=== PATIENT | male | born 1950 | race Caucasian/White ===

== ENCOUNTER 2018-04-23 07:33 | Day surgery (SDC) | payer MEDICARE, MEDICAID ==
[~2018-04-23] VITALS: Ht 170.2 cm; Wt 70.8 kg
[2018-04-23] VITALS (8 sets, daily range): BP systolic 144–168; BP diastolic 76–84
--- NOTE | 2018-04-23 06:35 | Anethesia Preoperative Eval ---
Anesthesia Pre-op PMH/ROS General Date of Evaluation: Apr 23, 2018 Time of Evaluation: 06:30 Anesthesiologist: gloria ASA Score: ASA 3 Mallampati Score Class I : Soft palate, uvula, fauces, pillars visible Class II: Soft palate, uvula, fauces visible Class III: Soft palate, base of uvula visible Class IV: Only hard plate visible Mallampati Classification: Class II Surgeon: emily Diagnosis: gerd, colon screening Surgical Procedure: egd/colonoscopy Anesthesia History: none Social History: alcohol use Family History: no anesthesia problems Allergies: Coded Allergies: No Known Allergies (Unverified , 04/18/18) Medications: see eMAR Past Medical History Cardiovascular: Reports: other - hld, Pulmonary: Denies: asthma, COPD, RAJ, other Gastrointestinal/Genitourinary: Reports: other - h. pylori, gerd, constipation , kidney stones Neurologic/Psychiatric: Denies: dementia, CVA, depression/anxiety, TIA, other Endocrine: Denies: DM, hypothyroidism, steroids, other HEENT: Denies: cataract (L), cataract (R), glaucoma, [place] (L[place] (R), other Hematology/Immune: Reports: anemia Musculoskeletal/Integumentary: Reports: OA Anesthesia Pre-op Phys. Exam Physician Exam Constitutional: NAD Neurologic: CN 2-12 intact - disconjugate gaze, exophthalmos, other Cardiovascular: RRR Respiratory: CTA Gastrointestinal: S/NT/ND Airway Exam Mallampati Score: Class II MO: full Neck: supple TMD: 2fb ROM: full Anesthesia Pre-op A/P Risk Assessment & Plan Assessment: asa3 Plan: mac Status Change Before Surgery: No Pre-Antibiotics Drug: Katlyn Shepherd MD Apr 23, 2018 06:35
[~2018-04-23 07:33] MED LIST: Atropine Inj 1mg/10ml Syr IV PRN; DiphenhydrAMINE 50mg/ml Inj IVP PRN; Midazolam 2mg/2ml Inj IVP PRN; fentaNYL 100 mcg/2 mL IV PRN
[2018-04-23] MEDS ORDERED: NKM (08:06)
--- NOTE | 2018-04-23 09:42 | Pre-Procedure Note/Attestation ---
Pre-Procedure Note/Attestation Complete Prior to Procedure Planned Procedure: not applicable Procedure Narrative: esophagogastroduodenoscopy and colonoscopy Indications for Procedure Pre-Operative Diagnosis: screening colon, GERD Attestation I attest that I discussed the nature of the procedure; its benefits; risks and complications; and alternatives (and the risks and benefits of such alternatives ), prior to the procedure, with the patient (or the patient's legal sales representative [employer]). I attest that, if there was a reasonable possibility of needing a blood transfusion, the patient (or the patient's legal sales representative [employer]) was given the [facility] standardized written summary, pursuant to the [place] Blood Safety Act ([place] Health and Safety Code # 1645, as amended). I attest that I re-evaluated the patient just prior to the surgery and that there has been no change in the patient's H&P, except as documented below: Gurwinder Riddle MD Apr 23, 2018 09:42
--- NOTE | 2018-04-23 09:43 | Short Stay Surgery H&P ---
History of Present Illness History of Present Illness Chief Complaint see recent consult note HPI Venkata Gonzalez is a 67 year old male who was admitted on for Gerd, Colon Screening Patient History Allergies: Coded Allergies: No Known Allergies (Unverified , 04/18/18) Medication History Scheduled No Known Medications* (NKM - No Known Medications*), 0 ., (Reported) Physical Exam Vital Signs Last Vital Signs Date Time Temp Pulse Resp B/P (MAP) Pulse Ox O2 Delivery O2 Flow Rate FiO2 04/23/18 08:10 97.1 66 18 168/84 98 Nasal Cannula 97.1 Plan Attestation Are the patient's medical conditions optimized for surgery? Gurwinder Riddle MD Apr 23, 2018 09:43
[2018-04-23] MEDS ORDERED: Propofol 200mg/20ml IV ONE (10:00)
[2018-04-23] MEDS ORDERED: Lidocaine 1% MPF 10mg/ml 5ml ONE (10:00)
--- NOTE | 2018-04-23 10:34 | Endoscopy Procedure Note ---
Endoscopy Procedure Note General Indication for Procedure: screening colon, GERD Procedures Performed: EGD, colonoscopy Operative Findings/Diagnosis: gastrtis, polyp x1 Specimen: yes Pt Tolerated Procedure Well: Yes Estimated Blood Loss: none Anesthesia Anesthesiologist: keren Anesthesia: MAC Inserted Devices Implant(s) used?: No Quality Quality of Bowel Preparation: Good Did scope reach the cecum?: Yes Was there any complications?: No GI Core Measures 50 yrs or older w/o bx or poly: No 10yrs. F/U not recommended: Yes If not recommended, why?: Above average risk 10 yrs. F/U needed: Yes 18 years or older w/prev. colo: No Gurwinder Riddle MD Apr 23, 2018 10:34
--- NOTE | 2018-04-23 11:00 | Procedure Note ---
DATE OF PROCEDURE: 04/23/2018 SURGEON: Gurwinder Riddle M.D. ANESTHESIOLOGIST: Dr. Valladares. PROCEDURE: Upper endoscopy with biopsy and colonoscopy with biopsy. ANESTHESIA: Per Dr. Valladares. INSTRUMENT: Olympus adult flexible upper endoscope and colonoscope. INDICATION: Chronic GERD, history of gastric ulcer, screening colonoscopy. The procedure, risks, benefits, and possible consequences, including hemorrhage, aspiration, perforation and infection, and alternative treatments, were explained to the patient/legal guardian by Dr. Gurwinder Riddle and the patient/legal guardian understood and accepted these risks. DESCRIPTION OF PROCEDURE: After informed consent was obtained and the patient was adequately sedated, Olympus upper endoscope was advanced from the mouth into the second portion of the duodenum and retroflexion was performed in the stomach. The patient has some deformity right in the opening of the duodenal bulb, possibly from prior gastric ulcerations. There was no obvious ulceration at this time. The patient has evidence of a small hiatal hernia. In the stomach, there was diffuse gastritis. Random biopsy from antrum and body was obtained to rule out H. pylori infection. In the esophagus, there were some changes suspicious for eosinophilic esophagitis. Biopsy from the esophagus was obtained. At this time, the upper endoscope was retrieved. The patient was turned over for colonoscopy. First, rectal exam was performed which was positive for internal hemorrhoids. Then, the scope was advanced from rectum into the cecum documented by the appendiceal orifice, ileocecal valve, and right upper quadrant palpation. Quality of prep was good. The patient had one diminutive polyp in the sigmoid colon removed with the cold biopsy forceps technique, otherwise normal colonoscopy examination. There was some scattered diverticulosis. No obvious diverticulitis. Retroflexion of rectum showed evidence of internal hemorrhoids. SUMMARY OF FINDINGS: 1. Questionable eosinophilic esophagitis, status post biopsy. 2. Small hiatal hernia. 3. Gastritis, status post biopsy. 4. One colonic polyp removed, see above for details. 5. Internal hemorrhoids. 6. Scattered diverticulosis. RECOMMENDATIONS: 1. Follow up biopsy results and treat accordingly. 2. We will recommend repeat colonoscopy in 5 years. Gurwinder Riddle M.D. DR: Jannet JOB#: [id number] CC:
--- NOTE | 2018-04-23 11:40 | Immediate Post-Op Evaluation ---
Immediate Post-Op Evalulation Immediate Post-Op Evalulation Procedure: egd/colonoscopy/bx Date of Evaluation: Apr 23, 2018 Time of Evaluation: 10:49 IV Fluids: 500ml 0.9ns Blood Products: none Estimated Blood Loss: negligible Blood Pressure Systolic: 144 Blood Pressure Diastolic: 88 Pulse Rate: 73 Respiratory Rate: 18 O2 Sat by Pulse Oximetry: 99 Temperature (Fahrenheit): 98.5 Pain Score (1-10): 0 Nausea: No Vomiting: No Complications none Patient Status: awake, reacts, patent Hydration Status: adequate Drug: Katlyn Shepherd MD Apr 23, 2018 11:40
--- NOTE | 2018-04-23 11:42 | 48 Hour Post Anesthesia Eval ---
Post Anesthesia Evaluation Procedure: egd/colonoscopy/bx Date of Evaluation: Apr 23, 2018 Time of Evaluation: 11:01 Blood Pressure Systolic: 146 0: 84 Pulse Rate: 63 Respiratory Rate: 18 Temperature (Fahrenheit): 98.5 O2 Sat by Pulse Oximetry: 99 Airway: patent Nausea: No Vomiting: No Pain Intensity: 0 Hydration Status: adequate Cardiopulmonary Status: stable Mental Status/LOC: patient returned to baseline Post-Anesthesia Complications: none Follow-up care needed: N/A Katlyn Hernandez MD Apr 23, 2018 11:42
--- NOTE | 2018-04-25 15:18 | Cardiology Report ---
APPROVED REPORT EKG Measurement Heart [id number] Sinus bradycardia Right bundle branch block Minimal voltage criteria for LVH, may be normal variant Abnormal ECG
== END 2018-04-23 12:00 | disposition home or self-care (01) ==
LOC: GAS 07:33
DX: Z12.11 Encounter for screening for malignant neoplasm of colon (principal); K21.9 Gastro-esophageal reflux disease without esophagitis; K44.9 Diaphragmatic hernia without obstruction or gangrene; K29.50 Unspecified chronic gastritis without bleeding; K64.8 Other hemorrhoids; K57.90 Diverticulosis of intestine, part unspecified, without perforation or abscess without bleeding; D12.5 Benign neoplasm of sigmoid colon; I45.10 Unspecified right bundle-branch block; R00.1 Bradycardia, unspecified; M19.90 Unspecified osteoarthritis, unspecified site
CPT/HCPCS: 43239; 45380; 93005; J2704; 94003; 94150

== ENCOUNTER 2018-05-22 08:59 | Outpatient (CLI) | payer MEDICARE, MEDICAID ==
[~2018-05-22 08:59] MED LIST changes: -Atropine Inj 1mg/10ml Syr IV PRN; -DiphenhydrAMINE 50mg/ml Inj IVP PRN; -Midazolam 2mg/2ml Inj IVP PRN; +NKM; -fentaNYL 100 mcg/2 mL IV PRN
--- NOTE | 2018-05-22 09:49 | GI Progress Note ---
Assessment/Plan Problems: (1) Gastritis ICD Codes: K29.70 - Gastritis, unspecified, without bleeding SNOMED: 8717597 (2) Hemorrhoids ICD Codes: K64.9 - Unspecified hemorrhoids SNOMED: 16359989 (3) Diverticulosis ICD Codes: K57.90 - Diverticulosis of intestine, part unspecified, without perforation or abscess without bleeding SNOMED: 985287850 (4) Hiatal hernia ICD Codes: K44.9 - Diaphragmatic hernia without obstruction or gangrene SNOMED: 41253394 Status: stable Status Narrative Seen with Dr. Riddle. Assessment/Plan SUMMARY OF FINDINGS reviewed with patient: 1. Questionable eosinophilic esophagitis, status post biopsy. 2. Small hiatal hernia. 3. Gastritis, status post biopsy. 4. One colonic polyp removed, see above for details. 5. Internal hemorrhoids. 6. Scattered diverticulosis. RECOMMENDATIONS: 1. Follow up biopsy results and treat accordingly. >> negative for H. Pylori 2. We will recommend repeat colonoscopy in 5 years. RTC prn The patient was seen and examined at bedside and all new and available data was reviewed in the patients chart. I agree with the above findings, impression and plan. (Patient seen earlier today. Signature stamp does not reflect patient encounter time.). - Gurwinder Riddle MD Subjective Gastrointestinal/Abdominal: Reports: no symptoms Objective T 97.4 BP 149/74 P 64 95 RA General Appearance: WD/WN, no apparent distress, alert Cardiovascular: normal rate Respiratory/Chest: normal breath sounds, no respiratory distress Abdominal Exam: normal bowel sounds, non tender, soft Extremities: normal range of motion, non-tender Sandra Gallegos UNDERGROUND REPAIRER May 22, 2018 09:49
[2018-05-22 09:57] VITALS: BP 149/74
== END 2018-05-22 09:34 | disposition home or self-care (01) ==
LOC: PAN 08:59
DX: K29.70 Gastritis, unspecified, without bleeding (principal); K64.9 Unspecified hemorrhoids; K57.90 Diverticulosis of intestine, part unspecified, without perforation or abscess without bleeding; K44.9 Diaphragmatic hernia without obstruction or gangrene; K63.5 Polyp of colon
CPT/HCPCS: 99212